=== PATIENT | male | born 1995 | race Two or more races ===

== ENCOUNTER 2022-01-08 10:29 | Emergency (ER) | payer SELFPAY ==
[~2022-01-08] VITALS: Ht 180.3 cm; Wt 67.6 kg
[2022-01-08 14:03] VITALS: BP 125/83
[2022-01-08] MEDS ORDERED: CLIN300C8 PO (14:54)
[2022-01-08] MEDS ORDERED: IBUP800T27 PO (14:54)
[2022-01-08] MEDS ORDERED: ONDANSETRON ODT 4 MG TAB PO ONE (15:00)
[2022-01-08] MEDS ORDERED: ACETAMINOPHEN/CODEINE#3 (300/30mg) TAB PO ONE (15:00)
== END 2022-01-08 15:16 | disposition home or self-care (01) ==
LOC: ER 10:29 → EDBD 10:29 → ER 15:16
DX: S02.642A Fracture of ramus of left mandible, initial encounter for closed fracture (principal); F17.210 Nicotine dependence, cigarettes, uncomplicated; S16.1XXA Strain of muscle, fascia and tendon at neck level, initial encounter; Y04.8XXA Assault by other bodily force, initial encounter; Y93.89 Activity, other specified; Y92.89 Other specified places as the place of occurrence of the external cause; Y99.8 Other external cause status
CPT/HCPCS: 70486; 72125; 73030; 99284; Q0162